=== PATIENT | female | born 1940 | race Caucasian/White ===

== ENCOUNTER 2016-12-19 21:09 | Emergency (ER) | payer OTHER, BC ==
[~2016-12-19] VITALS: Ht 160 cm; Wt 50.9 kg
[~2016-12-19 21:09] MED LIST: ADULT LOW DOSE81 M1 PO; CATAPRES0.1 MG PO; CRESTOR20 MG PO; CRESTOR40 MG PO; LIPITOR40 MG PO; LO-DOSE ASPIRIN81 M1 PO; OS-CAL 500+D31 EACH PO; OYST-CAL D, OS500 MG PO; Oyst-Cal D, Oscal W/ PO; PLAVIX75 MG PO; ZANTAC150 M1 PO; Zantac PO
[2016-12-19 21:36] LABS: HEMATOCRIT 42.7 % (36.0-46.0); MCH 31.1 PG (29.0-34.0); MCHC 34.2 G/DL (30.0-36.0); MCV 90.9 FL (83-99); MEAN PLAT.VOLUME 9.8 uM^3 (9.5-12.4); PLATELET COUNT 273 K/uL (156-360); RBC DIS.WIDTH-CV 12.1 % (11.8-14.6); RBC DIS.WIDTH-SD 40.4 % (39-53); WHITE BLOOD COUNT 5.5 K/uL (4.1-10.2)
[2016-12-19 21:58] LABS: CHLORIDE 104 mEq/L (99-109); POTASSIUM 3.7 mEq/L (3.7-5.4); SODIUM 137 mEq/L (136-147)
[2016-12-19 21:59] LABS: GLUCOSE 119 mg/dL (70-99)
[2016-12-19 22:01] LABS: ANION GAP 14 MEQ/L (2-14)
[2016-12-19 22:03] LABS: GFR ESTIMATE (CALCULATED) > 59 mL/min/
[2016-12-19 22:04] LABS: UREA NITROGEN (BUN) 16 mg/dL (9-23)
[2016-12-19 23:12] LABS: TROP-I INTERPRETATION NEGATIVE; TROPONIN-I < 0.01 ng/mL (0.0-0.30)
[2016-12-20 00:28] LABS: INFLUENZA A VIRAL ANTIGEN POSITIVE; INFLUENZA B VIRAL ANTIGEN NEGATIVE
[2016-12-20] MEDS ORDERED: TAMIFLU75 MG PO (00:31)
[2016-12-20 00:59] VITALS: BP 161/96
== END 2016-12-20 01:10 | disposition home or self-care (01) ==
LOC: EME 21:09
PROVIDERS: Emergency Medicine
DX: J11.1 Influenza due to unidentified influenza virus with other respiratory manifestations (principal); G43.909 Migraine, unspecified, not intractable, without status migrainosus; I10 Essential (primary) hypertension; Z95.5 Presence of coronary angioplasty implant and graft; Z79.82 Long term (current) use of aspirin; Z85.9 Personal history of malignant neoplasm, unspecified; Z90.49 Acquired absence of other specified parts of digestive tract; Z90.710 Acquired absence of both cervix and uterus
CPT/HCPCS: 70450; 71020; 80048; 81003; 84484; 85027; 87502; 93005; 99281; 99285; J0780; J1200; J1885; J7030

== ENCOUNTER 2017-04-03 02:12 | Observation (INO) | payer OTHER, BC ==
[~2017-04-03] VITALS: Ht 160 cm; Wt 57.7 kg
[~2017-04-03 02:12] MED LIST changes: +TAMIFLU75 MG PO
[2017-04-03 02:48] LABS: HEMATOCRIT 43.6 % (36.0-46.0); MCH 30.2 PG (29.0-34.0); MCHC 32.6 G/DL (30.0-36.0); MCV 92.8 FL (83-99); MEAN PLAT.VOLUME 9.8 uM^3 (9.5-12.4); PLATELET COUNT 298 K/uL (156-360); RBC DIS.WIDTH-CV 12.3 % (11.8-14.6); RBC DIS.WIDTH-SD 42.2 % (39-53); WHITE BLOOD COUNT 8.7 K/uL (4.1-10.2)
[2017-04-03 02:56] LABS: CHLORIDE 109 mEq/L (99-109); POTASSIUM 3.6 mEq/L (3.7-5.4); SODIUM 144 mEq/L (136-147)
[2017-04-03 02:57] LABS: GLUCOSE 108 mg/dL (70-99)
[2017-04-03 02:59] LABS: ANION GAP 11 MEQ/L (2-14)
[2017-04-03 03:01] LABS: GFR ESTIMATE (CALCULATED) > 59 mL/min/
[2017-04-03 03:02] LABS: UREA NITROGEN (BUN) 17 mg/dL (9-23)
[2017-04-03 03:08] LABS: TROP-I INTERPRETATION NEGATIVE; TROPONIN-I < 0.01 ng/mL (0.0-0.30)
[2017-04-03 03:32] LABS: D-DIMER ELISA 0.87 mg/L FEU (< 0.57)
[2017-04-03 03:39] LABS: TOTAL BILIRUBIN 0.9 mg/dL (0.0-1.0)
[2017-04-03 03:40] LABS: ALKALINE PHOSPHATASE 53 IU/L (3-129)
[2017-04-03 03:42] LABS: DIRECT BILIRUBIN 0.3 mg/dL (0.0-0.3)
[2017-04-03 03:43] LABS: LIPASE 51 U/L (1.0-51.0)
[2017-04-03 10:48] LABS: TROP-I INTERPRETATION NEGATIVE; TROPONIN-I < 0.01 ng/mL (0.0-0.30)
[2017-04-03 14:26] VITALS: BP 127/62
[2017-04-03 16:08] LABS: TROP-I INTERPRETATION NEGATIVE; TROPONIN-I < 0.01 ng/mL (0.0-0.30)
[2017-04-03 16:43] VITALS: BP 107/67
[2017-04-03 19:51] VITALS: BP 146/81
[2017-04-04 00:37] VITALS: BP 100/60
[2017-04-04 04:38] VITALS: BP 110/62
[2017-04-04 07:00] VITALS: BP 98/59
[2017-04-04 11:18] VITALS: BP 100/61
[2017-04-04 15:45] VITALS: BP 125/64
[2017-04-04] MEDS ORDERED: PROTONIX40 MG PO (16:12)
== END 2017-04-04 16:45 | disposition home or self-care (01) ==
LOC: EME 02:12 → EDOF 09:11 → 5WEST 09:11
PROVIDERS: Internal Medicine
PROC: 0DB58ZX Excision of Esophagus, Via Natural or Artificial Opening Endoscopic, Diagnostic (ICD-10-PCS; principal; 2017-04-04)
DX: R07.9 Chest pain, unspecified (principal); R13.10 Dysphagia, unspecified; K44.9 Diaphragmatic hernia without obstruction or gangrene; K20.9 Esophagitis, unspecified; K22.2 Esophageal obstruction; I25.10 Atherosclerotic heart disease of native coronary artery without angina pectoris; Z95.5 Presence of coronary angioplasty implant and graft; I10 Essential (primary) hypertension; E78.5 Hyperlipidemia, unspecified
CPT/HCPCS: 71020; 71275; 80048; 80076; 83690; 84484; 85027; 85379; 85651; 88305; 93005; 93306; 99281; 99285; C9113; G0378; J1650; J2270; S0028